=== PATIENT | male | born 1985 | race Caucasian/White ===

== ENCOUNTER 2018-04-06 04:32 | Emergency (ER) | payer SELFPAY ==
[2018-04-06] MEDS ORDERED: Clindamycin HCl 150 MG Cap PO ONE (04:44)
[2018-04-06] MEDS ORDERED: Acetaminophen/HYDROcodone 325-10 MG Tab PO ONE (04:44)
--- NOTE | 2018-04-06 04:50 | EDM.PDOC ---
ED HPI GENERAL MEDICAL PROBLEM - General Chief Complaint: ENT Problem Stated Complaint: TOOTHACHE [id number] Time Seen by Provider: 04/06/18 04:46 Source of Information: Reports: Patient History Limitations: Reports: No Limitations - History of Present Illness INITIAL COMMENTS - FREE TEXT/NARRATIVE: tooth abscess Right Upper Tooth/Teeth Pain Score (Numeric/FACES): 6 - Related Data Allergies Allergy/AdvReac Type Severity Reaction Status Date / Time No Known Allergies Allergy Verified 04/06/18 04:35 Home Meds: Home Meds . [No Known Home Meds] 02/20/14 [History] Past Medical History - Past Health History Medical/Surgical History: Denies Medical/Surgical History Social & Family History - Tobacco Use Smoking Status *Q: Never Smoker - Caffeine Use Caffeine Use: Reports: Coffee, Energy Drinks - Alcohol Use Days Per Week of Alcohol Use: 1 Number of Drinks Per Day: 4 Total Drinks Per Week: 4 - Recreational Drug Use Recreational Drug Use: No ED ROS ENT - Review of Systems Review Of Systems: ROS reveals no pertinent complaints other than HPI. ED EXAM, ENT - Physical Exam Exam: See Below Exam Limited By: No Limitations General Appearance: Alert, WD/WN, Mild Distress, Other (upset) Ears: Hearing Grossly Normal Mouth/Throat: Dental Abcess, Dental Pain, Dental Tenderness Head: Atraumatic Neck: Non-Tender, Full Range of Motion Respiratory/Chest: No Respiratory Distress Cardiovascular: Regular Rate, Rhythm GI/Abdominal: Soft, Non-Tender Neurological: Alert, Oriented, Normal Cognition, Normal Gait, No Motor/Sensory Deficits Psychiatric: Tearful Skin: Warm, Dry, Normal Color Lymphatic: No Adenopathy Course - Vital Signs Last Recorded V/S: Last Vital Signs Temp 36.6 C 04/06/18 04:35 Pulse 94 04/06/18 04:35 Resp 18 04/06/18 04:35 BP 132/76 04/06/18 04:35 Pulse Ox 97 04/06/18 04:35 - Orders/Labs/Meds Orders: Active Orders 24 hr Category Date Time Status Acetaminophen/HYDROcodone [[place] 325-10 MG] Med 04/06/18 04:44 Once 1 tab PO ONETIME ONE Clindamycin HCl [Cleocin] Med 04/06/18 04:44 Once 300 mg PO ONETIME ONE Departure - Departure Time of Disposition: 04:48 Disposition: Home, Self-Care 01 Condition: Good Clinical Impression: Dental caries, Dental abscess - Discharge Information Instructions: Dental Abscess, [id number] Additional Instructions: 1) avoid solid foods 2) see dentist 3) recheck as needed rx given; clindamycin 300mg qid x 40 vicodin 5/325mg tid prn x12 - My Orders Last 24 Hours: My Active Orders 04/06/18 04:44 Acetaminophen/HYDROcodone [[place] 325-10 MG] 1 tab PO ONETIME ONE Clindamycin HCl [Cleocin] 300 mg PO ONETIME ONE - Assessment/Plan Last 24 Hours: My Active Orders 04/06/18 04:44 Acetaminophen/HYDROcodone [[place] 325-10 MG] 1 tab PO ONETIME ONE Clindamycin HCl [Cleocin] 300 mg PO ONETIME ONE
== END 2018-04-06 05:04 | disposition home or self-care (01) ==
LOC: DL.ED 04:32
DX: K04.7 Periapical abscess without sinus (principal); K02.9 Dental caries, unspecified
CPT/HCPCS: 99282; A9270

== ENCOUNTER 2021-05-11 13:05 | Emergency (ER) | payer SELFPAY ==
[2021-05-11] MEDS ORDERED: Sodium Chloride 0.9% 10 ML Syringe FLUSH PRN (13:43)
[2021-05-11] MEDS ORDERED: diphenhydrAMINE 50 MG/ML SDV IVPUSH ONE (13:45)
[2021-05-11] MEDS ORDERED: Sodium Chloride 0.9% 1,000 ML IV ONE (13:45)
[2021-05-11 13:58] LABS: ANION GAP 15.6 mEq/L (7-13); CHLORIDE,CL 100 mmol/L (98-107); SODIUM,NA 139 mmol/L (136-145)
[2021-05-11] MEDS ORDERED: VANCOmycin 1.75 GM/350 ML 1.75 GM in Premix Bag 1 BAG IV ONE (14:00)
[2021-05-11] MEDS ORDERED: VANCOMYCIN IV ONE (14:00)
[2021-05-11] MEDS ORDERED: WATER FOR INJ IV ONE (14:00)
--- NOTE | 2021-05-11 14:19 | EDM.PDOC ---
ED HPI GENERAL MEDICAL PROBLEM - General Chief Complaint: Upper Extremity Injury/Pain Stated Complaint: INFECTED HAND Time Seen by Provider: 05/11/21 13:33 Source of Information: Reports: Patient, RN, RN Notes Reviewed History Limitations: Reports: No Limitations - History of Present Illness INITIAL COMMENTS - FREE TEXT/NARRATIVE: Pt presents to ER by POV with c/o suspected infection to left hand. Pt reports a small scrape to the middle left finger knuckle (MCPJ) a few days ago, but is not sure how he injured it. Yesterday the redness around the scrape developed into a red tender streak that has spread proximally up the dorsum of the left hand to the wrist. Denies fever, chills, axilla tenderness or lymphadenitis. No Hx of MRSA. Onset: Gradual Duration: Day(s): (1-2) Location: Reports: Upper Extremity, Left Quality: Reports: Ache Severity: Mild Improves with: Reports: None Worsens with: Reports: None Associated Symptoms: Reports: No Other Symptoms Left Hand Pain Score (Numeric/FACES): 3 - Related Data Allergies Allergy/AdvReac Type Severity Reaction Status Date / Time No Known Allergies Allergy Verified 05/11/21 13:39 Home Meds: Home Meds . [No Known Home Meds] 02/20/14 [History] Past Medical History - Past Health History Medical/Surgical History: Denies Medical/Surgical History HEENT History: Reports: None Cardiovascular History: Reports: None Respiratory History: Reports: None Gastrointestinal History: Reports: None Genitourinary History: Reports: None Musculoskeletal History: Reports: None Neurological History: Reports: None Psychiatric History: Reports: None Endocrine/Metabolic History: Reports: Obesity/BMI 30+ Hematologic History: Reports: None Immunologic History: Reports: None Oncologic (Cancer) History: Reports: None Dermatologic History: Reports: None - Infectious Disease History Infectious Disease History: Reports: None - Past Surgical History Head Surgeries/Procedures: Reports: None Social & Family History - Family History Family Medical History: No Pertinent Family History - Tobacco Use Tobacco Use Status *Q: Never Tobacco User - Caffeine Use Caffeine Use: Reports: Coffee - Recreational Drug Use Recreational Drug Use: No - Living Situation & Occupation Living situation: Reports: , with Family Occupation: Employed Review of Systems - Review of Systems Review Of Systems: Comprehensive ROS is negative, except as noted in HPI. ED EXAM, GENERAL - Physical Exam Exam: See Below Exam Limited By: No Limitations General Appearance: Alert, WD/WN, No Apparent Distress Respiratory/Chest: No Respiratory Distress Cardiovascular: Normal Peripheral Pulses Extremities: Normal Range of Motion, Normal Capillary Refill, Redness (Dorsal left hand overlying the 3rd MCPJ is a 1cm abrasion scabbed over with crusty eschar and peripheral erythema spreading proximally in a 1cm wide line to the wrist with tenderness, no swelling, no abscess). No: Joint Swelling, Increased Warmth Neurological: Alert, Oriented, No Motor/Sensory Deficits Psychiatric: Normal Mood Skin Exam: Warm, Dry Course - Vital Signs Last Recorded V/S: Last Vital Signs Temp 97.3 F 05/11/21 13:20 Pulse 84 05/11/21 13:20 Resp 18 05/11/21 13:20 BP 136/89 05/11/21 13:20 Pulse Ox 96 05/11/21 13:20 - Orders/Labs/Meds Orders: Active Orders 24 hr Category Date Time Status CULTURE BLOOD [BC] Stat Lab 05/11/21 13:30 Received CULTURE BLOOD [BC] Stat Lab 05/11/21 14:10 Received Sodium Chloride 0.9% [Saline Flush] Med 05/11/21 13:43 Active 10 ml FLUSH ASDIRECTED PRN Blood Culture x2 Reflex Set [OM.PC] Stat Oth 05/11/21 13:42 Ordered Peripheral IV Insertion Adult [OM.PC] Stat Oth 05/11/21 13:43 Ordered Medication Orders Sodium Chloride (Sodium Chloride 0.9% 10 Ml Syringe) 10 ml FLUSH ASDIRECTED PRN PRN Reason: Keep Vein Open Last Admin: 05/11/21 13:59 Dose: 10 ml Documented by: KEITH Labs: Laboratory Tests 05/11/21 05/11/21 05/11/21 Range/Units 13:30 13:30 13:30 WBC 4.6 L (5.0-10.0) 10^3/uL RBC 4.81 (4.6-6.2) 10^6/uL Hgb 14.4 (14.0-18.0) g/dL Hct 42.5 (40.0-54.0) % MCV 88.4 (80-100) fL MCH 29.9 (27.0-34.0) pg MCHC 33.9 (33.0-35.0) g/dL Plt Count 256 (150-450) 10^3/uL Neut % (Auto) 52.3 (42.2-75.2) % Lymph % (Auto) 40.3 (20.5-50.1) % George % (Auto) 5.0 (2-8) % Eos % (Auto) 2.2 (1.0-3.0) % Baso % (Auto) 0.2 (0.0-1.0) % Sodium 139 (136-145) mmol/L Potassium 3.6 (3.5-5.1) mmol/L Chloride 100 (98-107) mmol/L Carbon Dioxide 27 (21-32) mmol/L Anion Gap 15.6 H (7-13) mEq/L BUN 14 (7-18) mg/dL Creatinine 1.17 (0.70-1.30) mg/dL Est Cr Clr Drug Dosing 107.33 mL/min Estimated GFR (MDRD) > 60 Glucose 176 H (70-99) mg/dL Lactic Acid 1.9 (0.4-2.0) mmol/L Calcium 9.0 (8.5-10.1) mg/dL C-Reactive Protein 0.7 (0.0-0.9) mg/dL Meds: Medications Generic Name Dose Route Start Last Admin Trade Name Aniket PRN Reason Stop Dose Admin Sodium Chloride 10 ml 05/11/21 13:43 05/11/21 13:59 Sodium Chloride 0.9% 10 Ml Syringe FLUSH 10 ml ASDIRECTED PRN Administration Keep Vein Open Discontinued Medications Generic Name Dose Route Start Last Admin Trade Name Freq PRN Reason Stop Dose Admin Diphenhydramine HCl 25 mg 05/11/21 13:45 05/11/21 13:59 Diphenhydramine 50 Mg/Ml Sdv IVPUSH 05/11/21 13:46 25 mg ONETIME ONE Administration Sodium Chloride 1,000 mls @ 999 mls/hr 05/11/21 13:45 05/11/21 13:59 Normal Saline IV 05/11/21 14:45 999 mls/hr .BOLUS ONE Administration Vancomycin HCl 1.75 gm/ Premix 350 mls @ 233.333 mls/hr 05/11/21 14:00 05/11/21 14:08 IV 05/11/21 15:29 233.333 mls/hr ONETIME ONE Administration Vancomycin HCl 1 dose 05/11/21 13:44 05/11/21 14:09 Pharmacy To Dose - Vancomycin .XX 05/11/21 13:45 Not Given ONETIME ONE Departure - Departure Time of Disposition: 15:45 Disposition: Home, Self-Care 01 Condition: Good Clinical Impression: Cellulitis of left hand, Hyperglycemia - Discharge Information *PRESCRIPTION DRUG MONITORING PROGRAM REVIEWED*: Not Applicable *COPY OF PRESCRIPTION DRUG MONITORING REPORT IN PATIENT OBI: Not Applicable Instructions: Cellulitis, Adult, [id number] Forms: ED Department Discharge Additional Instructions: Rx: Clindamycin 300mg Rx: Doxycycline 100mg Complete all 10 days of both antibiotics. Return to ER or follow up in clinic if any signs of worsening infection. Follow up with your primary clinic in the next week to recheck blood sugar, and evaluate for diabetic risk. Sepsis Event Note (ED) - Evaluation Sepsis Screening Result: No Definite Risk - Focused Exam Vital Signs: Vital Signs Temp Pulse Resp BP Pulse Ox 05/11/21 13:20 97.3 F 84 18 136/89 96 - My Orders Last 24 Hours: My Active Orders 05/11/21 13:30 CULTURE BLOOD [BC] Stat 05/11/21 13:42 Blood Culture x2 Reflex Set [OM.PC] Stat 05/11/21 13:43 Sodium Chloride 0.9% [Saline Flush] 10 ml FLUSH ASDIRECTED PRN Peripheral IV Insertion Adult [OM.PC] Stat 05/11/21 14:10 CULTURE BLOOD [BC] Stat - Assessment/Plan Last 24 Hours: My Active Orders 05/11/21 13:30 CULTURE BLOOD [BC] Stat 05/11/21 13:42 Blood Culture x2 Reflex Set [OM.PC] Stat 05/11/21 13:43 Sodium Chloride 0.9% [Saline Flush] 10 ml FLUSH ASDIRECTED PRN Peripheral IV Insertion Adult [OM.PC] Stat 05/11/21 14:10 CULTURE BLOOD [BC] Stat
== END 2021-05-11 15:46 | disposition home or self-care (01) ==
LOC: DL.ED 13:05
DX: L03.114 Cellulitis of left upper limb (principal); R73.9 Hyperglycemia, unspecified; E66.9 Obesity, unspecified; Z68.38 Body mass index [BMI] 38.0-38.9, adult
CPT/HCPCS: 36415; 80048; 83605; 85025; 86140; 87040; 96365; 96366; 96375; 99284; J1200; J3370; J7030